=== PATIENT | female | born 1975 | race Caucasian/White ===

== ENCOUNTER 2018-10-29 03:32 | Emergency (ER) | payer SELFPAY ==
[~2018-10-29] VITALS: Ht 154.9 cm; Wt 111.1 kg
[~2018-10-29 03:32] MED LIST: HYDR-3729 PO; MUPI15CR TP; SULF1TAB35 PO
[2018-10-29] MEDS ORDERED: ACETAMINOPHEN 500 MG TAB (TYLENOL) PO ONE (03:45)
[2018-10-29] MEDS ORDERED: KETOROLAC 30 MG/ML VIAL IM ONE (03:45)
--- NOTE | 2018-10-29 03:51 | ED EENT ---
History of Present Illness General Stated Complaint: PAIN IN RT SIDE OF HEAD AND FACE Source: patient Exam Limitations: no limitations History of Present Illness Date Seen by Provider: Oct 29, 2018 Time Seen by Provider: 03:37 Initial Comments Patient presents to ER by private conveyance with chief complaint of couple days of progressively worsening pain right side of her face and right ear canal. She has some discharge from the right ear. No fevers chills cough. She smokes about one half pack per day. Does not take any medicines or follow routinely with a physician. Allergies and Home Medications Allergies Coded Allergies: No Known Drug Allergies (Unverified , 09/03/15) Home Medications No Active Prescriptions or Reported Meds Patient Home Medication List Home Medication List Reviewed: Yes Review of Systems Review of Systems Constitutional: No chills, No diaphoresis, No fever Eyes: Denies Blindness, Denies Blurred Vision Ears: See HPI; Denies Dizziness; Pain Nose: denies clots, denies congestion Mouth: denies clots, denies loose teeth, denies pain, denies swelling Throat: denies pain, denies swelling Past Jbxvifk-Vuacob-Yrlaib Hx Patient Social History Alcohol Use: Denies Use Recreational Drug Use: No Smoking Status: Current Everyday Smoker Type Used: Cigarettes (1.5 ppd) Recent Foreign Travel: No Contact w/Someone Who Travel: No Immunizations Up To Date Tetanus Booster (TDap): Less than 5yrs Seasonal Allergies Seasonal Allergies: No Past Medical History Section, Gallbladder, Tubal Ligation 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 oz. 111.633429kv; BMI Method:Stated General Appearance: WD/WN, mild distress Eyes: bilateral eye normal inspection, bilateral eye PERRL, bilateral eye EOMI Ears: right ear swelling (right ear canal), right ear tenderness, right ear other (scant, dried drainage at the opening of the ear); left ear auricle normal, left ear canal normal, left ear TM dull (mucoid effusion) Nose: normal inspection; No discharge Progress/Results/Core Measures Results/Orders My Orders Orders - SCOTT OLIVEROS Acetaminophen Tablet (Tylenol Tablet) (10/29/18 03:45) Ketorolac Injection (Toradol Injection) (10/29/18 03:45) Progress Progress Note : Time: 03:47 Progress Note Toradol and Tylenol Departure Impression Primary Impression: Otitis externa Qualified Codes: H60.501 - Unspecified acute noninfective otitis externa, right ear Disposition: 01 HOME, SELF-CARE Condition: Stable Departure-Patient Inst. Decision time for Depature: 03:47 Referrals: NO,LOCAL PHYSICIAN (PCP) Primary Care Physician Patient Instructions: Outer Ear Infection (DC) Add. Discharge Instructions: Tylenol 1000 mg every 8 hours as needed for pain. Ibuprofen 800 mg every 8 hours as needed for pain. Warm compresses over the right ear. Put four drops of Ciprodex into your right ear twice a day for the next week. Return to the doctor if you're not seeing some improvement by day 3 or 4. Scripts Ciprofloxacin HCl/Dexameth (Ciprodex Otic Suspension) 7.5 Ml Soln 4 DROPS OT BID for 7 Days, #7.5 ML 0 Refills Prov: SCOTT OLIVEROS 10/29/18 Work/School Note: Work Release Form Date Seen in the Emergency Department: Oct 29, 2018 Return to Work: Oct 29, 2018 Restrictions: No Restrictions SCOTT OLIVEROS Oct 29, 2018 03:51
[2018-10-29] MEDS ORDERED: NF-CIPDEC OT (03:59)
[2018-10-29 04:05] VITALS: BP 164/107
== END 2018-10-29 04:05 | disposition home or self-care (01) ==
LOC: EDUNIT# 03:32 → ER 03:35
DX: H60.91 Unspecified otitis externa, right ear (principal); F17.210 Nicotine dependence, cigarettes, uncomplicated; Z98.51 Tubal ligation status
CPT/HCPCS: 99284

== ENCOUNTER 2021-10-09 14:21 | Emergency (ER) | payer SELFPAY ==
[~2021-10-09] VITALS: Ht 154.9 cm; Wt 117.9 kg
[~2021-10-09 14:21] MED LIST changes: +NF-CIPDEC OT; -SULF1TAB35 PO; +SULF1TAB38 PO
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
[2021-10-09] MEDS ORDERED: HYDROcodone/APAP 5 MG/325 MG (LORTAB) TAB PO ONE (14:30)
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
[2021-10-09 15:39] VITALS: BP 115/73
[2021-10-11] MEDS ORDERED: ACHD5005 PO (18:01)
== END 2021-10-09 15:39 | disposition home or self-care (01) ==
LOC: EDUNIT# 14:21 → ER 14:22
DX: S39.92XA Unspecified injury of lower back, initial encounter (principal); Y09 Assault by unspecified means
CPT/HCPCS: 72220

== ENCOUNTER 2021-10-13 17:43 | Emergency (ER) | payer SELFPAY ==
[~2021-10-13] VITALS: Ht 170.2 cm; Wt 110.0 kg
[~2021-10-13 17:43] MED LIST changes: +ACHD5005 PO
[2021-10-13] MEDS ORDERED: ROCURONIUM 50 MG/5 ML (ZEMURON) VIAL IV ONE (17:50)
[2021-10-13] MEDS ORDERED: ETOMIDATE IV SOLN 20 MG/10 ML VIAL IV ONE (17:50)
[2021-10-13 18:00] VITALS: BP 114/90
[2021-10-13] MEDS ORDERED: LACTATED RINGERS 1,000 ML IV ONE ×4 (18:00→20:30)
[2021-10-13 18:06] LABS: BASOPHILS # (AUTO) 0.1 10^3/uL (0.0-0.1); BASOPHILS % (AUTO) 0 % (0-10); EOSINOPHILS % (AUTO) 0 % (0-10); HEMATOCRIT 41 % (35-52); LYMPHOCYTES # (AUTO) 1.2 10^3/uL (1.0-4.0); LYMPHOCYTES % (AUTO) 8 % (12-44); MEAN CORPUSCULAR HEMOGLOBIN 29 pg (25-34); MEAN CORPUSCULAR HGB CONC 34 g/dL (32-36); MEAN CORPUSCULAR VOLUME 84 fL (80-99); MEAN PLATELET VOLUME 9.7 fL (9.0-12.2); MONOCYTES # (AUTO) 1.2 10^3/uL (0.0-1.0); MONOCYTES % (AUTO) 8 % (0-12); NEUTROPHILS # (AUTO) 13.1 10^3/uL (1.8-7.8); NEUTROPHILS % (AUTO) 83 % (42-75); PLATELET COUNT 443 10^3/uL (130-400); WHITE BLOOD COUNT 15.8 10^3/uL (4.3-11.0)
[2021-10-13] MEDS ORDERED: PROPOFOL DRIP (ICU) 100 ML IV ONE (18:11)
[2021-10-13] MEDS ORDERED: ACETAMINOPHEN 650 MG SUPP (TYLENOL) PR ONE ×2 (18:15→21:00)
[2021-10-13] MEDS ORDERED: CEFEPIME INJECTION 1,000 MG in NS (IVPB) 50 ML IV ONE (18:15)
[2021-10-13 18:20] LABS: LYMPHOCYTES % (MANUAL) 10 %; MONOCYTES % (MANUAL) 14 %; NEUTROPHILS % (MANUAL) 76 %
[2021-10-13 18:21] LABS: ERYTHROCYTE SEDIMENTATION RATE 42 MM/HR (0-20); ROULEAUX MOD
[2021-10-13 18:22] LABS: CHLORIDE 96 MMOL/L (98-107)
[2021-10-13 18:23] LABS: ALBUMIN 2.9 GM/DL (3.2-4.5); POTASSIUM 4.7 MMOL/L (3.6-5.0); SODIUM 133 MMOL/L (135-145)
[2021-10-13 18:24] LABS: CALCIUM 9.9 MG/DL (8.5-10.1)
[2021-10-13 18:25] LABS: GLUCOSE 120 MG/DL (70-105)
[2021-10-13 18:26] LABS: CARBON DIOXIDE 20 MMOL/L (21-32); TOTAL PROTEIN 7.7 GM/DL (6.4-8.2)
[2021-10-13 18:27] LABS: FIBRIN DEGRADATION PRODUCTS 14.54 UG/ML (0.00-0.49); INR 1.3 (0.8-1.4); PROTHROMBIN TIME PATIENT 16.8 SEC (12.2-14.7)
[2021-10-13 18:29] LABS: ALKALINE PHOSPHATASE 150 U/L (40-136); GFR ESTIMATED 13
[2021-10-13 18:30] LABS: BUN/CREATININE RATIO 9
[2021-10-13 18:32] LABS: ALANINE AMINOTRANSFERASE 53 U/L (0-55); MAGNESIUM 2.1 MG/DL (1.6-2.4)
--- NOTE | 2021-10-13 18:40 | ED General ---
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 off details and they have paged MICU. [phone]: Dr Jade, MICU accepts Transfer Facility: [facility] Method of Transfer: Air (Fixed wing from [place]) Departure-Patient Inst. Referrals: NO,LOCAL PHYSICIAN (PCP/Family) Primary Care Physician SCOTT OLIVEROS Oct 13, 2021 18:40
[2021-10-13 18:44] LABS: CREATINE KINASE 5864 U/L (29-168)
[2021-10-13] MEDS ORDERED: fentaNYL INJ 100 MCG/2 ML AMP IVP ONE (18:45)
[2021-10-13] MEDS ORDERED: NOREPINEPHRINE 8 MG/250 ML 250 ML IV ONE (18:49)
[2021-10-13] MEDS ORDERED: MIDAZOLAM 5 MG/5 ML (VERSED) VIAL ONE ×2 (19:06→21:18)
[2021-10-13 19:12] LABS: ACETAMINOPHEN < 10 UG/ML (10-30); CREATINE KINASE MB 30.3 NG/ML (<6.6)
[2021-10-13 19:14] LABS: ABG OXYGEN SATURATION 99 % (94-100); ABG PCO2 46 MMHG (35-45); ABG PO2 169 MMHG (79-93); ALLENS TEST YES-POS
[2021-10-13 19:15] LABS: ABG PH 7.33 (7.37-7.43); INSPIRED O2 100%; PATIENT TEMP 39.9; VENTILATOR YES
[2021-10-13] MEDS ORDERED: IOHEXOL 350 MG/ML 100 ML (OMNIPAQUE 350) VIAL IV ONE (19:15)
[2021-10-13] MEDS ORDERED: MIDAZOLAM 5 MG/5 ML (VERSED) VIAL IVP ONE (19:15)
[2021-10-13] MEDS ORDERED: HOLD METFORMIN - RECEIVED CONTRAST 20 ML VIAL IV SCH (19:15)
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
[2021-10-13] MEDS ORDERED: PROPOFOL DRIP (ICU) 100 ML IV SCH (19:30)
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
[2021-10-13] MEDS: PROPOFOL DRIP (ICU) 100 ML IV SCH ×3 (19:54→23:37)
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
[2021-10-13] MEDS ORDERED: TETANUS,DIPTH,PERTUSS P/F (BOOSTRIX) 0.5 ML VIAL IM ONE (20:45)
--- NOTE | 2021-10-13 21:02 | Diagnostic Imaging Report ---
INDICATION: Line placement. TECHNIQUE: Single view chest 8:16 PM. CORRELATION STUDY: Same day. FINDINGS: Endotracheal tube has been retracted, tip now approximately 3.8 cm by the alejandro, just below the clavicles. Right IJ central has been placed tip projects over the high SVC. Gastric tube has been placed, tip directed superiorly to the fundal aspect of stomach. Heart size and mediastinum remain enlarged and prominent. There is what appears to be likely new atelectasis perhaps infiltrate and/or aspiration at the left lung base. IMPRESSION: 1. Repositioned endotracheal tube. Placement of gastric tube and a right IJ central line. 2. Opacity of left lung base may reflect new atelectasis versus infiltrate and/or aspiration. Follow-up imaging recommended. Dictated by: Dictated on workstation # [id number]
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
[2021-10-14] VITALS: BP 101/58
== END 2021-10-14 00:05 | disposition short-term general hospital (02) ==
LOC: EDUNIT# 17:43 → ER 17:49
DX: S36.408A Unspecified injury of other part of small intestine, initial encounter (principal); T24.211A Burn of second degree of right thigh, initial encounter; T21.10XA Burn of first degree of trunk, unspecified site, initial encounter; T79.6XXA Traumatic ischemia of muscle, initial encounter; S37.009A Unspecified injury of unspecified kidney, initial encounter; S36.119A Unspecified injury of liver, initial encounter; J39.8 Other specified diseases of upper respiratory tract; G93.40 Encephalopathy, unspecified; R34 Anuria and oliguria; Z20.822 Contact with and (suspected) exposure to COVID-19; X08.8XXA Exposure to other specified smoke, fire and flames, initial encounter
CPT/HCPCS: 31500; 36600; 51702; 70450; 70486; 71045; 71260; 72125; 73562; 74177; 80053; 82550; 82553; 82805; 83605; 83735; 83874; 84145; 84484; 84703; 85007; 85027; 85379; 85610; 85652; 85730; 86141; 87040; 87077; 87636; 93005; 93041; 94002; 99291; 99292; G0390; G0480 ×2; 36415; 80320; 80329; 90715

== ENCOUNTER → 2022-02-01 | Outpatient (CLI) | payer MEDICAID ==
[2022-02-01 14:50] LABS: BASOPHILS # (AUTO) 0.1 10^3/uL (0.0-0.1); BASOPHILS % (AUTO) 1 % (0-10); EOSINOPHILS # (AUTO) 0.1 10^3/uL (0.0-0.3); EOSINOPHILS % (AUTO) 2 % (0-10); HEMATOCRIT 32 % (35-52); HEMOGLOBIN 10.2 g/dL (11.5-16.0); LYMPHOCYTES # (AUTO) 2.5 10^3/uL (1.0-4.0); LYMPHOCYTES % (AUTO) 28 % (12-44); MEAN CORPUSCULAR HEMOGLOBIN 32 pg (25-34); MEAN CORPUSCULAR HGB CONC 32 g/dL (32-36); MEAN CORPUSCULAR VOLUME 99 fL (80-99); MEAN PLATELET VOLUME 8.2 fL (9.0-12.2); MONOCYTES # (AUTO) 0.7 10^3/uL (0.0-1.0); MONOCYTES % (AUTO) 8 % (0-12); NEUTROPHILS # (AUTO) 5.4 10^3/uL (1.8-7.8); NEUTROPHILS % (AUTO) 61 % (42-75); PLATELET COUNT 442 10^3/uL (130-400); WHITE BLOOD COUNT 8.9 10^3/uL (4.3-11.0)
[2022-02-01 15:08] LABS: CALCIUM 9.3 MG/DL (8.5-10.1); CREATININE SERUM 0.81 MG/DL (0.60-1.30); POTASSIUM 3.6 MMOL/L (3.6-5.0)
[2022-02-01 15:30] LABS: ERYTHROCYTE SEDIMENTATION RATE > 140 MM/HR (0-20)
== END ==
LOC: WOUNDCARE 13:31
PROVIDERS: ATTEND Family Medicine
DX: L97.115 Non-pressure chronic ulcer of right thigh with muscle involvement without evidence of necrosis (principal); R26.89 Other abnormalities of gait and mobility; M62.3 Immobility syndrome (paraplegic); G81.04 Flaccid hemiplegia affecting left nondominant side; E55.9 Vitamin D deficiency, unspecified; T86.821 Skin graft (allograft) (autograft) failure; G31.84 Mild cognitive impairment of uncertain or unknown etiology; T65.292A Toxic effect of other tobacco and nicotine, intentional self-harm, initial encounter; F15.21 Other stimulant dependence, in remission
CPT/HCPCS: 11042; 11045; 80048; 82306; 82607; 82746; 84134; 85025; 85652; 86141; 87070; 87205; A6197; G0463; 36415

== ENCOUNTER → 2022-02-22 | Outpatient (CLI) | payer MEDICAID | LOC: WOUNDCARE 09:18 | PROVIDERS: ATTEND Family Medicine | DX: I96 Gangrene, not elsewhere classified (principal); L97.105 Non-pressure chronic ulcer of unspecified thigh with muscle involvement without evidence of necrosis; M62.3 Immobility syndrome (paraplegic); G81.04 Flaccid hemiplegia affecting left nondominant side; E55.9 Vitamin D deficiency, unspecified; T86.821 Skin graft (allograft) (autograft) failure; G31.84 Mild cognitive impairment of uncertain or unknown etiology; T65.292A Toxic effect of other tobacco and nicotine, intentional self-harm, initial encounter; E44.0 Moderate protein-calorie malnutrition; F15.21 Other stimulant dependence, in remission; F40.240 Claustrophobia | CPT/HCPCS: 11042; 11045; A6197; G0463 ==

== ENCOUNTER → 2022-08-16 | Outpatient (CLI) | payer MEDICAID ==
--- NOTE | 2022-08-16 17:52 | Diagnostic Imaging Report ---
Exam: CT right knee without contrast. Date: August 16, 2022. Indication: 47-year-old female, nonhealing wound of the right knee. Right knee pain. Comparison: Right knee radiographs October 13, 2021. Technique: Axial CT images of the knee were obtained without contrast. Coronal and sagittal reformats were obtained and provided. All CT scans use one or more of the following dose optimizing techniques: automated exposure control, MA and/or KvP adjustment based on patient size and exam type or iterative reconstruction. . Findings: There is a soft tissue defect anteriorly near the level of the distal femur and patella. There is underlying foci of gas in the subcutaneous tissues such as on axial image 50 and adjacent sequential images. There is abnormal attenuation in the anterior subcutaneous tissues directly contacting the patella. There is significant volume loss of the patella as well as bone erosions of the patella consistent with osteomyelitis. There is also osteomyelitis of the adjacent distal femur at the level of the femoral trochlea in particular. There is a small knee joint effusion. The proximal tibia is significantly posteriorly subluxed and relative to the distal femur by approximately 80%. There is direct contact of the medial aspect of the lateral femoral condyle with anterior aspect of the lateral tibial plateau on sagittal image 30 direct contact of the mid weightbearing portion of the medial femoral condyle the anterior margin of the medial tibial plateau on sagittal image 54. There is cortical irregularity of the anterior aspect of the lateral tibial plateau which could relate to the impaction versus osteomyelitis. There is also a skin contour deformity laterally located at the level of the distal femoral metaphysis with underlying abnormal increased attenuation in the subcutaneous tissues. The anterior and posterior cruciate ligaments are not well directly evaluated on CT although there is concern for tear of both ligaments given the positioning of the proximal tibia relative to the femur. Impression: 1. Findings highly suggestive of septic arthritis of the right knee with osteomyelitis of the patella and femoral trochlea and potentially the anterior aspect of the lateral tibial plateau. 2. The proximal tibia is posteriorly subluxed relative to the distal femur by approximately 80% suggesting complete tears of both anterior and posterior cruciate ligaments which are not well directly evaluated on this exam. There is direct impaction of the mid weightbearing portions of the medial and lateral femoral condyles on the anterior margins of the medial and lateral tibial plateaus respectively. 3. Skin contour abnormalities anteriorly and laterally at the level of the distal femur and patella with underlying abnormal attenuation in the subcutaneous tissues including subcutaneous gas anteriorly. Faxed to [facility] at 5:47 p.m. by rayshawn (for cb). Dictated by: Dictated on workstation # [id number]
== END ==
LOC: RAD 15:10
DX: S81.001D Unspecified open wound, right knee, subsequent encounter (principal); X58.XXXD Exposure to other specified factors, subsequent encounter
CPT/HCPCS: 73700

== ENCOUNTER 2022-09-10 14:58 | Inpatient (IN) | payer MEDICAID ==
[~2022-09-10] VITALS: Ht 154.9 cm; Wt 149.9 kg
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
[2022-09-10 15:29] LABS: BASOPHILS % (AUTO) 0 % (0-10); EOSINOPHILS # (AUTO) 0.3 10^3/uL (0.0-0.3); EOSINOPHILS % (AUTO) 3 % (0-10); HEMATOCRIT 41 % (35-52); HEMOGLOBIN 12.9 g/dL (11.5-16.0); LYMPHOCYTES # (AUTO) 2.1 X 10^3 (1.0-4.0); LYMPHOCYTES % (AUTO) 21 % (12-44); MEAN CORPUSCULAR HEMOGLOBIN 27 pg (25-34); MEAN CORPUSCULAR HGB CONC 31 g/dL (32-36); MEAN CORPUSCULAR VOLUME 87 fL (80-99); MEAN PLATELET VOLUME 8.5 fL (9.0-12.2); MONOCYTES # (AUTO) 0.8 X 10^3 (0.0-1.0); MONOCYTES % (AUTO) 8 % (0-12); NEUTROPHILS # (AUTO) 6.7 X 10^3 (1.8-7.8); NEUTROPHILS % (AUTO) 67 % (42-75); PLATELET COUNT 351 10^3/uL (130-400)
[2022-09-10 15:33] LABS: ALBUMIN 3.4 GM/DL (3.2-4.5); POTASSIUM 4.1 MMOL/L (3.6-5.0)
[2022-09-10 15:35] LABS: CALCIUM 9.3 MG/DL (8.5-10.1)
[2022-09-10 15:36] LABS: TOTAL PROTEIN 7.9 GM/DL (6.4-8.2)
[2022-09-10 15:37] LABS: BILIRUBIN,TOTAL 0.3 MG/DL (0.1-1.0)
[2022-09-10 15:39] LABS: CREATININE SERUM 0.87 MG/DL (0.60-1.30)
[2022-09-10] MEDS ORDERED: VANCOMYCIN INJECTION 1,500 MG in NS IV 500 ML 500 ML IV ONE (16:30)
[2022-09-10 18:50] VITALS: BP 124/82
[2022-09-10] MEDS ORDERED: VANCOMYCIN 1500MG/300ML PREMIX 300 ML IV NR (19:00)
[2022-09-10 20:00] VITALS: BP 124/60
[2022-09-10] MEDS ORDERED: HYDROcodone/APAP 5 MG/325 MG (LORTAB) TAB ONE (20:44)
[2022-09-10] MEDS: HYDROcodone/APAP 5 MG/325 MG (LORTAB) TAB PO PRN (20:45)
[2022-09-10] MEDS: ENOXAPARIN 60 MG/0.6 ML (LOVENOX) SYR SC SCH (21:42)
[2022-09-10 23:12] VITALS: BP 128/66
[2022-09-11 03:12] VITALS: BP 130/69
[2022-09-11 05:43] LABS: HEMATOCRIT 38 % (35-52); MEAN CORPUSCULAR HEMOGLOBIN 27 pg (25-34); MEAN CORPUSCULAR HGB CONC 32 g/dL (32-36); MEAN CORPUSCULAR VOLUME 85 fL (80-99); MEAN PLATELET VOLUME 8.6 fL (9.0-12.2); PLATELET COUNT 286 10^3/uL (130-400); WHITE BLOOD COUNT 8.8 10^3/uL (4.3-11.0)
[2022-09-11 05:49] LABS: POTASSIUM 4.3 MMOL/L (3.6-5.0)
[2022-09-11 05:50] LABS: CALCIUM 9.1 MG/DL (8.5-10.1)
[2022-09-11 05:55] LABS: CREATININE SERUM 0.84 MG/DL (0.60-1.30)
[2022-09-11 07:28] VITALS: BP 116/73
--- NOTE | 2022-09-11 09:08 | History & Physical ---
HPI History of Present Illness: Pt states she came to ER because her knee hurts and is swollen, usually didn't hurt before, and has felt 10x bigger than normal for the last 3 days, no fever. She had a CT scan done end of July after she saw Plastic Surgery for a visit, she states she did not hear about results. Oct 14 will be a year since original issue, she says she doesn't really know what started it. Has had 2 skin grafts at . She denies being on antibiotics previously for infection there. She has not been seeing wound care recently. Hasn't been able to walk for a year, states "they won't let me have therapy", when asked why, she says "my stupid insurance". She does transfer with pole and uses grab bars in bathroom. She does have assistance as well, lives at a nursing facility. Source: patient Date seen by provider: Sep 11, 2022 Time Seen by Provider: 09:06 Attending Physician [place] PCP Admitting Physician: Alisa Zamora MD Attending Physician: Alisa Zamora MD Consult Date of Admission Sep 10, 2022 at 17:55 Home Medications Home Medications Reviewed patient Home Medication Reconciliation performed by pharmacy medication reconciliations management services technician and/or nursing. Patients Allergies have been reviewed. 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) Tobacco type used: Cigarettes Immunizations Up To Date Tetanus Booster (TDap): Less than 5yrs Influenza Vaccine Up-to-Date: No; Not Current Past Medical History PMHx: Nonhealing knee wound HTN SurgHx: Cholecystectomy C section Skin grafts Cataracts Family Medical History Significant Family History: Cancer (mother breast cancer at age 37, at age 44), Other Conditions/Hx Review of Systems ([facility]) Constitutional: No fever EENTM: No nose congestion, No throat pain Respiratory: No short of breath Cardiovascular: No chest pain Gastrointestinal: No abdominal pain; constipation; No diarrhea, No nausea, No vomiting Genitourinary: No dysuria; other (indwelling catheter since visit with Uro in July 2022) Musculoskeletal: see HPI Skin: see HPI Reviewed Test Results Reviewed Test Results Lab Laboratory Tests Test 09/10/22 15:13 09/10/22 18:05 09/11/22 05:35 Range/Units White Blood Count 10.0 8.8 4.3-11.0 10^3/uL Red Blood Count 4.78 4.42 3.80-5.11 10^6/uL Hemoglobin 12.9 12.0 11.5-16.0 g/dL Hematocrit 41 38 35-52 % Mean Corpuscular Volume 87 85 80-99 fL Mean Corpuscular Hemoglobin 27 27 25-34 pg Mean Corpuscular Hemoglobin Concent 31 L 32 32-36 g/dL Red Cell Distribution Width 15.2 H 15.2 H 10.0-14.5 % Platelet Count 351 286 130-400 10^3/uL Mean Platelet Volume 8.5 L 8.6 L 9.0-12.2 fL Immature Granulocyte % (Auto) 1 % Neutrophils (%) (Auto) 67 42-75 % Lymphocytes (%) (Auto) 21 12-44 % Monocytes (%) (Auto) 8 0-12 % Eosinophils (%) (Auto) 3 0-10 % Basophils (%) (Auto) 0 0-10 % Neutrophils # (Auto) 6.7 1.8-7.8 X 10^3 Lymphocytes # (Auto) 2.1 1.0-4.0 X 10^3 Monocytes # (Auto) 0.8 0.0-1.0 X 10^3 Eosinophils # (Auto) 0.3 0.0-0.3 10^3/uL Basophils # (Auto) 0.0 0.0-0.1 10^3/uL Immature Granulocyte # (Auto) 0.1 0.0-0.1 10^3/uL Sodium Level 137 135 135-145 MMOL/L Potassium Level 4.1 4.3 3.6-5.0 MMOL/L Chloride Level 101 101 98-107 MMOL/L Carbon Dioxide Level 27 25 21-32 MMOL/L Anion Gap 9 9 5-14 MMOL/L Blood Urea Nitrogen 12 12 7-18 MG/DL Creatinine 0.87 0.84 0.60-1.30 MG/DL Estimat Glomerular Filtration Rate 82 85 BUN/Creatinine Ratio 14 14 Glucose Level 115 H 108 H 70-105 MG/DL Lactic Acid Level 2.04 *H 1.08 0.50-2.00 MMOL/L Calcium Level 9.3 9.1 8.5-10.1 MG/DL Corrected Calcium 9.8 8.5-10.1 MG/DL Total Bilirubin 0.3 0.1-1.0 MG/DL Aspartate Amino Transf (AST/SGOT) 24 5-34 U/L Alanine Aminotransferase (ALT/SGPT) 26 0-55 U/L Alkaline Phosphatase 103 40-136 U/L Total Protein 7.9 6.4-8.2 GM/DL Albumin 3.4 3.2-4.5 GM/DL Radiology August 16, 2022 CT left leg: "Impression: 1. Findings highly suggestive of septic arthritis of the right knee with osteomyelitis of the patella and femoral trochlea and potentially the anterior aspect of the lateral tibial plateau. 2. The proximal tibia is posteriorly subluxed relative to the distal femur by approximately 80% suggesting complete tears of both anterior and posterior cruciate ligaments which are not well directly evaluated on this exam. There is direct impaction of the mid weightbearing portions of the medial and lateral femoral condyles on the anterior margins of the medial and lateral tibial plateaus respectively. 3. Skin contour abnormalities anteriorly and laterally at the level of the distal femur and patella with underlying abnormal attenuation in the subcutaneous tissues including subcutaneous gas anteriorly. Physical Exam-([facility]) Physical Exam Vital Signs VS - Last 72 Hours, by Label 09/10/22 09/10/22 09/10/22 09/10/22 15:00 17:57 18:50 19:25 Temp 37.5 37.4 Pulse 111 104 106 Resp 20 B/P (MAP) 145/89 (107) 145/89 124/82 (96) Pulse Ox 97 98 99 98 O2 Delivery Room Air Room Air 09/10/22 09/10/22 09/10/22 09/11/22 20:00 20:48 23:12 03:12 Temp 37.1 37.1 36.1 Pulse 109 110 99 Resp 20 20 20 B/P (MAP) 124/60 (81) 128/66 (86) 130/69 (89) Pulse Ox 99 96 96 O2 Delivery Room Air Room Air Room Air Room Air 09/11/22 09/11/22 09/11/22 07:28 08:00 11:11 Temp 36.2 36.4 Pulse 97 91 Resp 20 18 B/P (MAP) 116/73 (87) 110/58 (75) Pulse Ox 93 94 O2 Delivery Room Air Room Air Room Air Capillary Refill : Less Than 3 Seconds General Appearance: no apparent distress, obese Respiratory: lungs clear, normal breath sounds Cardiovascular: regular rate, rhythm, no murmur Peripheral Pulses: 2+ Dorsalis Pedis (R), 2+ Left Dors-Pedis (L) Gastrointestinal: normal bowel sounds, non tender, soft Extremities: other (right knee wrapped with dressing in place, surrounding erythema outside of dressing noted) Neurologic/Psychiatric: alert, normal mood/affect Assessment/Plan Assessment/Plan Admission Status: Inpatient Order (span 2 midnights) Reason for Inpatient Admission: Septic arthritis (1) Septic arthritis Status: Acute Assessment & Plan: Suspected based on CT, per ER, called and talked to who recommended she be sent there, but no bed availability, so admitted and started on levofloxacin and vancomycin and will attempt transfer again today. Met sepsis criteria on admit, but not severe or shock. Qualifiers: (2) Skin graft (allograft) (autograft) infection Status: Acute Assessment & Plan: Follows with Plastics at , reports next visit later this month, they did CT end of July as noted in imaging. Trying to transfer to . (3) Cellulitis Qualifiers: (4) DVT prophylaxis Assessment & Plan: Enoxaparin ALISA ZAMORA MD Sep 11, 2022 09:08
[2022-09-11] MEDS: VANCOMYCIN 1250 MG/NS 250 ML PREMIX IV SCH ×2 (09:28→18:58)
[2022-09-11] MEDS: ENOXAPARIN 60 MG/0.6 ML (LOVENOX) SYR SC SCH ×2 (09:29→20:26)
[2022-09-11] MEDS: HYDROcodone/APAP 5 MG/325 MG (LORTAB) TAB PO PRN ×2 (09:44→19:01)
[2022-09-11] MEDS ORDERED: CARV3.122 PO (10:34)
[2022-09-11] MEDS ORDERED: DOCU100C37 PO (10:34)
[2022-09-11] MEDS ORDERED: LORA10TA7 PO (10:34)
[2022-09-11] MEDS ORDERED: SENN-109 PO (10:34)
[2022-09-11] MEDS ORDERED: OXYB-52 PO (10:34)
[2022-09-11] MEDS ORDERED: POLY17PO6 PO ×2 (10:34)
[2022-09-11] MEDS ORDERED: ASPI-999 PO (10:34)
[2022-09-11] MEDS ORDERED: MAGN400T39 PO (10:34)
[2022-09-11] MEDS ORDERED: ONDA4TAB11 SL (10:34)
[2022-09-11] MEDS ORDERED: [UNRECOGNIZED DRUG - CODE] TP (10:34)
[2022-09-11] MEDS ORDERED: ACET325T38 PO (10:34)
[2022-09-11] MEDS ORDERED: SENN-234 PO (10:34)
[2022-09-11] MEDS ORDERED: TIZA-186 PO (10:34)
[2022-09-11] MEDS ORDERED: ERGO1250 PO (10:34)
[2022-09-11] MEDS ORDERED: LOPE-175 PO (10:34)
[2022-09-11] MEDS ORDERED: OXYC5TAB PO (10:34)
[2022-09-11] MEDS ORDERED: [UNRECOGNIZED DRUG - OTHER] (10:34)
[2022-09-11] MEDS ORDERED: MELA5TAB14 PO (10:34)
[2022-09-11] MEDS ORDERED: [UNRECOGNIZED DRUG - OTHER] OU (10:34)
[2022-09-11] MEDS ORDERED: TETR-53 OS (10:34)
[2022-09-11] MEDS ORDERED: CHOL-34 PO (10:34)
[2022-09-11 11:11] VITALS: BP 110/58
[2022-09-11 16:10] VITALS: BP 123/70
[2022-09-11 19:56] VITALS: BP 140/66
[2022-09-11] MEDS ORDERED: LORATADINE (CLARITIN) 10 MG TAB PO PRN (22:00)
[2022-09-11] MEDS ORDERED: polyethylene glycoL POWDER 17 GM (MIRALAX) PACK PO PRN (22:00)
[2022-09-11] MEDS ORDERED: ONDANSETRON 4 MG (ZOFRAN) ORAL DISSOLVE TAB SL PRN (22:00)
[2022-09-11] MEDS ORDERED: ACETAMINOPHEN 325 MG TABLET PO PRN (22:00)
[2022-09-11] MEDS ORDERED: SENNA W/DOCUSATE (SENOKOT S) TABLET PO PRN (22:00)
[2022-09-11 23:35] VITALS: BP 122/68
[2022-09-12] VITALS (7 sets, daily range): BP systolic 105–143; BP diastolic 57–96
[2022-09-12] MEDS: VANCOMYCIN 1250 MG/NS 250 ML PREMIX IV SCH ×3 (00:29→17:30)
[2022-09-12] MEDS: HYDROcodone/APAP 5 MG/325 MG (LORTAB) TAB PO PRN ×4 (00:32→20:26)
[2022-09-12 05:25] LABS: HEMATOCRIT 37 % (35-52); HEMOGLOBIN 11.7 g/dL (11.5-16.0); MEAN CORPUSCULAR HEMOGLOBIN 27 pg (25-34); MEAN CORPUSCULAR HGB CONC 32 g/dL (32-36); MEAN CORPUSCULAR VOLUME 86 fL (80-99); MEAN PLATELET VOLUME 8.6 fL (9.0-12.2); PLATELET COUNT 327 10^3/uL (130-400); WHITE BLOOD COUNT 8.6 10^3/uL (4.3-11.0)
[2022-09-12 05:36] LABS: POTASSIUM 3.7 MMOL/L (3.6-5.0)
[2022-09-12 05:37] LABS: CALCIUM 8.9 MG/DL (8.5-10.1)
[2022-09-12 05:42] LABS: CREATININE SERUM 0.86 MG/DL (0.60-1.30)
[2022-09-12] MEDS ORDERED: TROUGH ORDER-PHARMACY XX ONE ×2 (08:00→13:00)
[2022-09-12] MEDS: ASPIRIN 81 MG CHEW (CHILDREN'S ASA) PO SCH (09:39)
[2022-09-12] MEDS: DOCUSATE SODIUM 100 MG (COLACE) CAP PO SCH (09:40)
[2022-09-12] MEDS: polyethylene glycoL POWDER 17 GM (MIRALAX) PACK PO SCH ×2 (09:40→20:26)
[2022-09-12] MEDS: OXYBUTYNIN (DITROPAN) 5 MG TAB PO SCH ×2 (09:40→20:26)
[2022-09-12] MEDS: VITAMIN D3 25 MCG (1,000 UNITS) TABLET PO SCH (09:40)
[2022-09-12] MEDS: ENOXAPARIN 60 MG/0.6 ML (LOVENOX) SYR SC SCH ×2 (09:40→20:26)
[2022-09-12] MEDS: MAGNESIUM OXIDE (MAG-OX)400 MG TAB PO SCH ×2 (09:40→20:26)
--- NOTE | 2022-09-12 16:24 | Progress Note ---
Subjective Subjective/Events-last exam Afebrile, states she is feeling slightly better but still having pain in her knee. She notes the dressing seems saturated. Focused Exam Lactate Level 09/10/22 15:13: Lactic Acid Level 2.04*H 09/10/22 18:05: Lactic Acid Level 1.08 Objective Exam Last Set of Vital Signs Vital Signs Date Time Temp Pulse Resp B/P (MAP) Pulse Ox O2 Delivery O2 Flow Rate FiO2 09/12/22 16:11 36.7 89 20 119/67 (84) 95 Room Air Capillary Refill : Less Than 3 Seconds I&O Intake and Output 09/12/22 00:00 Intake Total 2220 ml Output Total 3125 ml Balance -905 ml Intake Oral 1720 ml IV Total 500 ml Output Urine Total 3125 ml # Bowel Movements 1 General: Alert, No Acute Distress Heart: Regular Rate, No Murmurs Skin: Other (right nee wrapped, some serous drainage at lower end of dressing, diffuse erythema of both legs) Neuro: Normal Speech Results/Procedures Lab Laboratory Tests 09/12/22 05:10: White Blood Count 8.6, Red Blood Count 4.35, Hemoglobin 11.7, Hematocrit 37, Mean Corpuscular Volume 86, Mean Corpuscular Hemoglobin 27, Mean Corpuscular Hemoglobin Concent 32, Red Cell Distribution Width 15.1H, Platelet Count 327, Mean Platelet Volume 8.6L, Sodium Level 136, Potassium Level 3.7, Chloride Level 102, Carbon Dioxide Level 24, Anion Gap 10, Blood Urea Nitrogen 13, Creatinine 0.86, Estimat Glomerular Filtration Rate 83, BUN/Creatinine Ratio 15, Glucose Level 119H, Calcium Level 8.9 09/12/22 08:00: Vancomycin Level Trough 24.8H 09/12/22 13:09: Vancomycin Level Trough 16.8 Microbiology 09/10/22 Gram Stain - Final, Resulted 09/10/22 Wound Culture - Preliminary, Resulted Staphylococcus aureus 09/10/22 Blood Culture - Preliminary, Resulted Staphylococcus hominis See Comments Radiology August 16, 2022 CT left leg: "Impression: 1. Findings highly suggestive of septic arthritis of the right knee with osteomyelitis of the patella and femoral trochlea and potentially the anterior aspect of the lateral tibial plateau. 2. The proximal tibia is posteriorly subluxed relative to the distal femur by approximately 80% suggesting complete tears of both anterior and posterior cruciate ligaments which are not well directly evaluated on this exam. There is direct impaction of the mid weightbearing portions of the medial and lateral femoral condyles on the anterior margins of the medial and lateral tibial plateaus respectively. 3. Skin contour abnormalities anteriorly and laterally at the level of the distal femur and patella with underlying abnormal attenuation in the subcutaneous tissues including subcutaneous gas anteriorly. Assessment/Plan Assessment/Plan (1) Septic arthritis Status: Acute Assessment & Plan: Suspected based on CT along with possible osteomyelitis of patella and tibia, per ER, called and talked to who recommended she be sent there, but no bed availability, so admitted and started on levofloxacin and vancomycin and will attempt transfer again today. Met sepsis criteria on admit, but not severe or shock. Qualifiers: (2) Osteomyelitis Status: Acute Assessment & Plan: CT with possible osteomyelitis of the patella and femoral trochlea and potentially anterior aspect of the lateral tibial plateau. On IV antibiotics, trying to transfer to . 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 Trying to transfer to . (5) Cellulitis Qualifiers: (6) DVT prophylaxis Assessment & Plan: Enoxaparin ALISA ASTUDILLO MD Sep 12, 2022 16:24
[2022-09-12] MEDS ORDERED: diphenhydrAMINE 25 MG TAB (BENADRYL) PO PRN (16:30)
[2022-09-12] MEDS ORDERED: HYPOCHLOROUS ACID/NaCl (VASHE) 250 ML IR PRN (17:15)
[2022-09-12] MEDS ORDERED: SENNOSIDES 8.6 MG (SENOKOT) TAB PO SCH (21:00)
[2022-09-12] MEDS ORDERED: MELATONIN 10 MG TABLET PO SCH (21:00)
[2022-09-13 03:22] VITALS: BP 128/70
[2022-09-13] MEDS: VANCOMYCIN 1250 MG/NS 250 ML PREMIX IV SCH (05:32)
[2022-09-13 05:47] LABS: HEMATOCRIT 36 % (35-52); HEMOGLOBIN 11.5 g/dL (11.5-16.0); MEAN CORPUSCULAR HEMOGLOBIN 27 pg (25-34); MEAN CORPUSCULAR HGB CONC 32 g/dL (32-36); MEAN CORPUSCULAR VOLUME 85 fL (80-99); MEAN PLATELET VOLUME 8.6 fL (9.0-12.2); PLATELET COUNT 327 10^3/uL (130-400); WHITE BLOOD COUNT 7.8 10^3/uL (4.3-11.0)
[2022-09-13 06:02] LABS: POTASSIUM 3.8 MMOL/L (3.6-5.0)
[2022-09-13 06:03] LABS: CALCIUM 9.2 MG/DL (8.5-10.1)
[2022-09-13 06:07] LABS: CREATININE SERUM 0.78 MG/DL (0.60-1.30)
[2022-09-13 08:35] VITALS: BP 123/61
[2022-09-13] MEDS: DOCUSATE SODIUM 100 MG (COLACE) CAP PO SCH (08:56)
[2022-09-13] MEDS: ENOXAPARIN 60 MG/0.6 ML (LOVENOX) SYR SC SCH (08:56)
[2022-09-13] MEDS: OXYBUTYNIN (DITROPAN) 5 MG TAB PO SCH (08:56)
[2022-09-13] MEDS: HYDROcodone/APAP 5 MG/325 MG (LORTAB) TAB PO PRN (08:56)
[2022-09-13] MEDS: ASPIRIN 81 MG CHEW (CHILDREN'S ASA) PO SCH (08:56)
[2022-09-13] MEDS: MAGNESIUM OXIDE (MAG-OX)400 MG TAB PO SCH (08:56)
[2022-09-13] MEDS: VITAMIN D3 25 MCG (1,000 UNITS) TABLET PO SCH (08:56)
[2022-09-13] MEDS: polyethylene glycoL POWDER 17 GM (MIRALAX) PACK PO SCH (08:57)
[2022-09-13] MEDS ORDERED: LEVOFLOXACIN 750 MG/D5W 150 ML PRE-MIX IV SCH (09:00)
--- NOTE | 2022-09-13 11:29 | Progress Note ---
Subjective Subjective/Events-last exam Afebrile, states she is not feeling well, is nauseated. Has had itching. Knee pain the same. Focused Exam Lactate Level 09/10/22 15:13: Lactic Acid Level 2.04*H 09/10/22 18:05: Lactic Acid Level 1.08 Objective Exam Last Set of Vital Signs Vital Signs Date Time Temp Pulse Resp B/P (MAP) Pulse Ox O2 Delivery O2 Flow Rate FiO2 09/13/22 08:35 37.1 98 20 123/61 (81) 91 Room Air Capillary Refill : Less Than 3 Seconds I&O Intake and Output 09/13/22 00:00 Intake Total 1650 ml Output Total 1750 ml Balance -100 ml Intake Oral 1400 ml IV Total 250 ml Output Urine Total 1750 ml General: Alert, No Acute Distress Lungs: Clear to Auscultation, Normal Air Movement Heart: Regular Rate, No Murmurs Abdomen: Normal Bowel Sounds, Soft Extremities: Other (right knee wrapped, no drainage on bandage) Skin: Other (diffuse erythema of abdomen down to both legs) Psych/Mental Status: Mood NL Results/Procedures Lab Laboratory Tests 09/12/22 13:09: Vancomycin Level Trough 16.8 09/13/22 05:45: White Blood Count 7.8, Red Blood Count 4.21, Hemoglobin 11.5, Hematocrit 36, Mean Corpuscular Volume 85, Mean Corpuscular Hemoglobin 27, Mean Corpuscular Hemoglobin Concent 32, Red Cell Distribution Width 15.0H, Platelet Count 327, Mean Platelet Volume 8.6L, Sodium Level 137, Potassium Level 3.8, Chloride Level 104, Carbon Dioxide Level 24, Anion Gap 9, Blood Urea Nitrogen 12, Creatinine 0.78, Estimat Glomerular Filtration Rate 93, BUN/Creatinine Ratio 15, Glucose Level 123H, Calcium Level 9.2 Microbiology 09/10/22 Gram Stain - Final, Resulted 09/10/22 Wound Culture - Preliminary, Resulted Staphylococcus aureus 09/10/22 Blood Culture - Preliminary, Resulted Staphylococcus hominis See Comments Radiology August 16, 2022 CT left leg: "Impression: 1. Findings highly suggestive of septic arthritis of the right knee with osteomyelitis of the patella and femoral trochlea and potentially the anterior aspect of the lateral tibial plateau. 2. The proximal tibia is posteriorly subluxed relative to the distal femur by approximately 80% suggesting complete tears of both anterior and posterior cruciate ligaments which are not well directly evaluated on this exam. There is direct impaction of the mid weightbearing portions of the medial and lateral femoral condyles on the anterior margins of the medial and lateral tibial plateaus respectively. 3. Skin contour abnormalities anteriorly and laterally at the level of the distal femur and patella with underlying abnormal attenuation in the subcuta neous tissues including subcutaneous gas anteriorly. Assessment/Plan Assessment/Plan (1) Septic arthritis Status: Acute Assessment & Plan: 09/11- Suspected based on CT from 08/16 along with possible osteomyelitis of patella and tibia, per ER, called and talked to who recommended she be sent there, but no bed availability, so admitted and started on levofloxacin and vancomycin and will attempt transfer again today. Met sepsis criteria on admit, but not severe or shock. 09/12- No beds on 09/11, called [facility] again and accepted in transfer 09/13- After transfer accepted, no transportation was available and bed was lost, waiting to see if she can get a bed again today. Will repeat CT. Qualifiers: (2) Osteomyelitis Status: Acute Assessment & Plan: CT 08/16 with possible osteomyelitis of the patella and femoral trochlea and potentially anterior aspect of the lateral tibial plateau. On IV antibiotics, trying to transfer to . 09/13 changing antibiotics from levo/vanc to levo/linezolid due to suspected reaction to vanc. 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 Trying to transfer to . (5) Cellulitis Qualifiers: (6) DVT prophylaxis Assessment & Plan: Enoxaparin ALISA ASTUDILLO MD Sep 13, 2022 11:29
[2022-09-13 11:44] VITALS: BP 119/72
[2022-09-13 12:20] VITALS: BP 119/72
[2022-09-13] MEDS ORDERED: LINEZOLID IVPB 300 ML IV SCH (21:00)
--- NOTE | 2022-09-13 22:30 | Discharge Summary ---
Discharge Summary Hospital Course Problems/Diagnosis: (1) Septic arthritis Status: Acute Assessment & Plan: 09/11- Suspected based on CT from 08/16 along with possible osteomyelitis of patella and tibia, per ER, called and talked to [facility] who recommended she be sent there, but no bed availability, so admitted and started on levofloxacin and vancomycin and will attempt transfer again today. Met sepsis criteria on admit, but not severe or shock. 09/12- No beds on 09/11, called [facility] again and accepted in transfer 09/13- After transfer accepted, no transportation was available and bed was lost, able to get bed and transport this morning and sent to . Qualifiers: (2) Osteomyelitis Status: Acute Assessment & Plan: CT 08/16 with possible osteomyelitis of the patella and femoral trochlea and potentially anterior aspect of the lateral tibial plateau. 09/13 changing antibiotics from levo/vanc to levo/linezolid due to suspected reaction to vanc. 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 (5) Cellulitis Qualifiers: Hospital Course Date of Admission: Sep 10, 2022 at 17:55 Admission Diagnosis : Family Physician/Provider: [place] Date of Discharge: 09/13/22 Discharge Diagnosis: See problem list Hospital Course: See problem list Labs and Pending Lab Test: Laboratory Tests 09/13/22 05:45: White Blood Count 7.8, Red Blood Count 4.21, Hemoglobin 11.5, Hematocrit 36, Mean Corpuscular Volume 85, Mean Corpuscular Hemoglobin 27, Mean Corpuscular Hemoglobin Concent 32, Red Cell Distribution Width 15.0H, Platelet Count 327, Mean Platelet Volume 8.6L, Sodium Level 137, Potassium Level 3.8, Chloride Level 104, Carbon Dioxide Level 24, Anion Gap 9, Blood Urea Nitrogen 12, Creatinine 0.78, Estimat Glomerular Filtration Rate 93, BUN/Creatinine Ratio 15, Glucose Level 123H, Calcium Level 9.2 Microbiology 09/10/22 Gram Stain - Final, Complete 09/10/22 Wound Culture - Final, Complete Staphylococcus aureus 09/10/22 Blood Culture - Preliminary, Resulted Staphylococcus hominis See Comments Home Meds Active No Active Prescriptions or Reported Medications Assessment/Pt DC Instructions Follow up after d/c from [facility] Discharge Physical Examination Allergies: Coded Allergies: Sulfa (Sulfonamide Antibiotics) (Verified Allergy, Unknown, 09/10/22) cefepime (Verified Allergy, Unknown, 09/10/22) ALISA ASTUDILLO MD Sep 13, 2022 22:30
[2022-09-18] MEDS ORDERED: VITAMIN D2 1.25 MG (50,000 UNITS) CAP PO SCH (22:00)
== END 2022-09-13 12:15 | disposition short-term general hospital (02) | DRG 919 ==
LOC: EDUNIT# 14:58 → ER 15:00 → 4TH 17:55
PROVIDERS: ADMIT Family Medicine; ATTEND Family Medicine
DX: T86.822 Skin graft (allograft) (autograft) infection (principal); A41.9 Sepsis, unspecified organism; L03.115 Cellulitis of right lower limb; M00.9 Pyogenic arthritis, unspecified; M86.18 Other acute osteomyelitis, other site; S83.121A Posterior subluxation of proximal end of tibia, right knee, initial encounter; I10 Essential (primary) hypertension; F17.210 Nicotine dependence, cigarettes, uncomplicated; Z79.82 Long term (current) use of aspirin; Z79.891 Long term (current) use of opiate analgesic; Z79.899 Other long term (current) drug therapy; Z88.1 Allergy status to other antibiotic agents; Z88.2 Allergy status to sulfonamides
CPT/HCPCS: 36415; 80048; 80053; 80202; 83605; 85025; 85027; 87040; 87070; 87077; 87186; 87205